=== PATIENT | female | born 1950 | race Caucasian/White ===

== ENCOUNTER 2017-05-10 16:18 | Emergency (ER) | payer BC, OTHER ==
[2017-05-10 16:39] VITALS: BP 110/65
--- NOTE | 2017-05-10 17:08 | UC ---
General HPI - HPI Summary HPI Summary: The patient comes in today for: 1. "Extreme aches, in every joint (neck, knees, ankles, wrists, fingers, hips) ": Onset: One week ago--started mild. It got worse last night. Palliative/provocative: Movement makes the aches worse. Ibuprofen makes it better. Laying down makes it better. Quality: Ache Region: Mostly joints as listed above. Severity: 8/10 Time: Constant. Associated symptoms: Headache: Present Stomach pain: Present Skin sensitivity: "really bad." Photosensitivity: Present. Mental fogginess: Present--she states that she does not think that she can entertain. Stiff joints: Present. Fever: Temperature taken this afternoon. 99.3 Reflex sympathetic dystrophy: Diagnosis made 1999 with symptoms localized to the lower left arm. The same diagnosis was made for her left foot in 2014. The left lower arm got "a lot worse" about a week ago. No sore throat. The patient thinks that she has Lyme disease again. She states that she has had it before (4 times) even though she has never had a positive serology. She requests that I start her on a treatment for Lyme disease. She does not confess to any recent tick bites. Despite her having no positive serology for Lyme disease, she states that she just "knows" that she had Lyme disease. She states that she was treated for it before. She states that her primary care provider (in [place], [place]) does not know anything about Lyme disease. She lives 1/2 the year in [place], [place] and 1/2 the year here in [place]. She has no local primary care provider. She states that she has come here before and started on antibiotics for Lyme disease in the past just because she asked for it. * - History of Current Complaint Chief Complaint: UCGeneralIllness Stated Complaint: LYME REOCCURRENCE? Time Seen by Provider: 05/10/17 16:55 Hx Obtained From: Patient - Allergy/Home Medications Allergies/Adverse Reactions: Allergies Allergy/AdvReac Type Severity Reaction Status Date / Time Penicillins Allergy Unknown Hives Verified 09/26/15 16:57 Sulfa Antibiotics Allergy Unknown Hives Verified 09/26/15 16:57 Home Medications: Home Medications Evolocumab [Repatha] 140 mg SC 05/10/17 [History] PMH/Surg Hx/FS Hx/Imm Hx Previously Healthy: No - IgG immundeficiency, genital herpes, reflex sympathetic dystrophy. Endocrine History: Dyslipidemia Respiratory History: Asthma - Surgical History Surgical History: Yes Surgery Procedure, Year, and Place: fan. right oophrectomy. - Family History Known Family History: Positive: Cardiac Disease, Diabetes - Social History Alcohol Use: Occasionally Substance Use Type: None Smoking Status (MU): Never Smoked Tobacco Have You Smoked in the Last Year: No Review of Systems Constitutional: Negative Skin: Negative Eyes: Negative ENT: Negative Respiratory: Negative Gastrointestinal: Abdominal Pain Musculoskeletal: Arthralgia All Other Systems Reviewed And Are Negative: Yes Physical Exam Triage Information Reviewed: Yes Appearance: Well-Appearing, No Pain Distress, Well-Nourished Vital Signs: Initial Vital Signs Temp 100.0 F 05/10/17 16:36 Pulse 74 05/10/17 16:36 Resp 18 05/10/17 16:36 BP 110/65 05/10/17 16:36 Pulse Ox 100 05/10/17 16:36 Vital Signs Reviewed: Yes Eyes: Positive: Conjunctiva Clear. Negative: Discharge ENT: Positive: Hearing grossly normal. Negative: Pharyngeal erythema, Nasal congestion, Nasal drainage, TM bulging, TM dull, TM red, Tonsillar swelling, Tonsillar exudate Dental: Negative: Gross Decay/Caries @, Dental Fracture @ Neck: Positive: Supple, Nontender, No Lymphadenopathy. Negative: Nuchal Rigidity Respiratory: Positive: Lungs clear, No respiratory distress, No accessory muscle use. Negative: Crackles, Wheezing Cardiovascular: Positive: RRR, No Murmur Abdomen Description: Positive: Nontender, No Organomegaly, Soft. Negative: Distended, Guarding Musculoskeletal: Positive: Strength Intact, ROM Intact, No Edema, Other: - She would flinch when I pressed on her bilateral axillary areas for lymphadenopathy and also in the groin area, but there is no enlarged nodes. He complaint of pain was more severe than the physical findings suggested. Generally, no marked joint hypertrophy, synovial thickening. Neurological: Positive: Alert, Muscle Tone Normal Psychological: Positive: Age Appropriate Behavior, Consolable Skin: Negative: rashes, breakdown Course/Dx - Course Course Of Treatment: Patient was told that I am not in the position to start her on a three week course of doxycycline for the treatment of Lyme disease at this time, but could order testing (CBC, Lyme titer, etc). However, my recommendation was to see someone (primary care provider, or ID or rheumatology ) for evaluation of her body aches and other symptoms. She declined all suggestions except seeing an ID specialist for evaluation of what she is conviced is Lyme disease. She agreed to have a ketorolac injection and an ID referral. She was told of how she could go to the ER for more immediate laboratory testing, but she declined. I told her that at most for patients coming in with symptoms that meet criteria for Lyme disease treatment, we can start treatment, but the full course needs to be completed through their primary care provider. She wanted me to start treatment. I agreed only to give her "a few days" doxycycline as part of "contract" to get a local provider to get assessed and treated for her constellation of symptoms. - Differential Dx - Multi-Symptom Provider Diagnoses: ARthralgia. Discharge - Discharge Plan Condition: Stable Disposition: HOME Patient Education Materials: Arthralgia (ED) Referrals: Rogelio Workman MD [Primary Care Provider] - As Soon As Possible Ovi Francois MD [Medical Doctor] - (Please call Dr. Francois's office for an appointment as soon as you can for evaluation of possible Lyme disease.)
[2017-05-10] MEDS ORDERED: Ketorolac INJ* 60 MG/2 ML VIAL IM ONE (17:30)
== END 2017-05-10 18:00 | disposition home or self-care (01) ==
LOC: UCEAST 16:18
DX: M25.50 Pain in unspecified joint (principal); E78.5 Hyperlipidemia, unspecified; J45.909 Unspecified asthma, uncomplicated
CPT/HCPCS: 99212; G0463; J1885